=== PATIENT | female | born 1950 | race Caucasian/White ===

== ENCOUNTER → 2018-04-02 | Outpatient (CLI) | payer MEDICARE, OTHER | LOC: COL.RAD 13:56 | DX: Z13.89 Encounter for screening for other disorder (principal); M79.661 Pain in right lower leg; M79.89 Other specified soft tissue disorders; Z96.651 Presence of right artificial knee joint ==

== ENCOUNTER → 2018-06-13 | Outpatient (CLI) | payer MEDICARE, OTHER | LOC: COL.VAS 13:00 | DX: M25.471 Effusion, right ankle (principal); Z96.651 Presence of right artificial knee joint ==

== ENCOUNTER 2020-11-16 06:48 | Outpatient (CLI) | payer MEDICARE, OTHER ==
[~2020-11-16] VITALS: Ht 165.2 cm; Wt 71.9 kg
[2020-11-16 07:38] VITALS: BP 126/79; PULSE 73; TEMP 98.4
[2020-11-16] MEDS ORDERED: HCTZ 25MG TAB25 MG PO (07:39)
[2020-11-16] MEDS ORDERED: PLENDIL 5MG TAB5 MG PO (07:39)
[2020-11-16] MEDS ORDERED: K-DUR20 MEQ PO (07:40)
[2020-11-16] MEDS ORDERED: AMBIEN 10MG10 MG PO (07:40)
[2020-11-16] MEDS ORDERED: CALCIUM 600 MG1 EAC2 PO (07:41)
[2020-11-16] MEDS ORDERED: FERROUSAL325 MG PO (07:42)
[2020-11-16] MEDS ORDERED: VITAMIN B11000 MCG/M IM (07:45)
[2020-11-16] MEDS ORDERED: ULTRAM 50MG TAB50 MG PO (07:45)
[2020-11-16] MEDS ORDERED: PRESERVISION1 SGL PO (07:45)
[2020-11-16] MEDS ORDERED: EXCEDRIN1 TAB PO (07:46)
[2020-11-16] MEDS ORDERED: BIOTIN2500 MCG PO (07:47)
[2020-11-16] MEDS ORDERED: VITAMIND3 5000 PO (07:49)
[2020-11-16] MEDS ORDERED: ZOVIRAX400 MG (07:50)
[2020-11-16] MEDS ORDERED: PHENERGAN 25 TA25 MG PO (07:50)
[2020-11-16 08:51] VITALS: BP 126/79; PULSE 73; TEMP 98.4
[2020-11-16 09:20] VITALS: BP 117/72; PULSE 76
--- NOTE | 2020-11-16 09:20 | NUR ---
PT RETURNED VIA CART FROM BONE MARROW BIOPSY, REPORT FORM RR NURSE. PT WALKED TO BED WITH STANDBY ASSIST. AWAKE AND ALERT. BROUGHT TO ROOM, CALL LIGHT IN PLACE, SIPS ON WATER, BANDAID TO LEFT POSTERIOR HIP IS CLEAN AND DRY
[2020-11-16 09:35] VITALS: BP 100/67; PULSE 69
[2020-11-16 09:50] VITALS: BP 108/74; PULSE 74
--- NOTE | 2020-11-16 09:50 | NUR ---
REVIEWED DISCHARGE INST. WITH PT, LAB INTO DRAW CBC. REVIEWED FOLLOWUP WITH PT AND CARE OF SITE AND MODERATE SEDATION PRECAUTIONS WITH VERBAL UNDERSTANDING. INT D'CD INTACT
[2020-11-16 10:10] LABS: MEAN CELL VOLUME 103 fl (80.0-100.0); MEAN CORPUSCULAR HGB CONC 32 g/dl (33.0-37.0); MEAN PLATELET VOLUME 9.8 fl (7.4-10.4); PLATELET COUNT 142 K/mm3 (130-400); RED BLOOD COUNT 2.99 M/mm3 (4.10-5.30); REDCELL DISTRIBUTION WIDTH-CV 14.4 % (11.5-14.5)
[2020-11-16 10:11] LABS: HEMATOCRIT 30.8 % (37.0-47.0); HEMOGLOBIN 9.7 g/dl (12.5-16.0); MEAN CORPUSCULAR HEMOGLOBIN 32 pg (27.0-31.0)
--- NOTE | 2020-11-16 10:20 | NUR ---
PT UP IN ROOM DRESSED, NO C/O, NO CHANGES FROM EARLIER ASSESSMENT, DR YODER'S OFFICE CALLED ON ABNORMAL CBC RESULTS, PT DISCHARGED VIA W/C TO CAR WITH
[2020-11-16 10:37] LABS: BAND 9 % (0-10); BASOPHIL 1 % (0-2); EOSINOPHIL 4 % (0-4); LYMPHOCYTE 45 % (20.0-51.0); NEUTROPHILS 27 % (42.0-75.2); PLATELET ESTIMATE NORMAL (NORMAL)
[2020-11-16 10:38] LABS: HYPOCHROMIA 1+
[2020-11-16 11:01] VITALS: BP 117/72; PULSE 76
== END 2020-11-16 10:20 | disposition home or self-care (01) ==
LOC: EUO 06:48 → SDCO 09:00 → EUO 10:20
PROVIDERS: Pathology Anatomic Pathology & Clinical Pathology
DX: D72.819 Decreased white blood cell count, unspecified (principal)
CPT/HCPCS: J2250; J2704; J3010; J7120